=== PATIENT | female | born 1980 | race Hispanic/Latino ===

== ENCOUNTER 2023-11-03 01:45 | Inpatient (IN) | payer BC, MEDICAID ==
[~2023-11-03] VITALS: Ht 147.3 cm; Wt 77.7 kg
[2023-11-03 04:50] LABS: BASOPHILS # (AUTO) 0.03 K/uL (0.00-0.20); BASOPHILS % (AUTO) 0.7 % (0.0-5.0); EOSINOPHILS % (AUTO) 2.3 % (0.0-8.0); HEMATOCRIT 23.6 % (36-48); IMMATURE GRANULOCYTE ABSOLUTE 0.02 K/uL (0-1); LYMPHOCYTES # (AUTO) 1.5 K/uL (1.0-4.8); LYMPHOCYTES % (AUTO) 35.3 % (21.0-51.0); MEAN CORPUSCULAR HEMOGLOBIN 22.6 pg (27.0-33.0); MEAN CORPUSCULAR HGB CONC 29.7 g/dL (32.0-36.0); MEAN CORPUSCULAR VOLUME 76.1 fL (79-99); MONOCYTES # (AUTO) 0.2 K/uL (0.1-1.0); MONOCYTES % (AUTO) 5.6 % (3.0-13.0); NEUTROPHILS # (AUTO) 2.4 K/uL (1.8-7.7); NEUTROPHILS % (AUTO) 55.6 % (40.0-77.0); PLATELET COUNT (AUTO) 272 K/uL (130-400); RED CELL DISTRIBUTION WIDTH 16.1 % (11.0-15.5); WHITE BLOOD COUNT (AUTO) 4.3 K/uL (4.8-10.8)
[2023-11-03 04:57] LABS: CREATININE 0.7 mg/dL (0.5-1.5); POTASSIUM 3.4 mmol/L (3.5-5.1)
[2023-11-03 04:58] LABS: APPEARANCE,URINE CLOUDY (CLEAR); BILIRUBIN,URINE NEGATIVE (NEGATIVE); COLOR,URINE LIGHT-ORANGE (YELLOW); GLUCOSE, URINE (UA) NEGATIVE (NEGATIVE); KETONES,URINE NEGATIVE (NEGATIVE); LEUKOCYTE ESTERASE ,URINE NEGATIVE Leu/uL (NEGATIVE); NITRATE,URINE NEGATIVE (NEGATIVE); OCCULT BLOOD,URINE LARGE (NEGATIVE); PROTEIN,URINE 30 mg/dL (NEGATIVE); UROBILINOGEN,URINE 0.2 mg/dL (0.2-1.0)
[2023-11-03 05:02] LABS: ADD UA MICROSCOPIC YES
[2023-11-03] MEDS: ONDANSETRON 4MG INJ IVP ONE (05:02)
[2023-11-03 05:03] LABS: BACTERIA,URINE MOD /HPF (None Seen); MUCUS,URINE RARE LPF (None Seen); RBC,URINE TNTC /HPF (0-1); SQUAMOUS EPITHELIAL CELL,UR FEW /HPF (0-2)
[2023-11-03] MEDS: DiphenhydrAMINE HCL 50 MG/ML VIAL IV ONE (05:03)
[2023-11-03] MEDS: KETOROLAC 30MG VIAL (30MG/ML) IVP ONE (05:04)
[2023-11-03 05:05] LABS: AMPHET/METH SCREEN,URINE NEGATIVE (NEGATIVE); BARBITURATE SCREEN, URINE NEGATIVE (NEGATIVE); BENZODIAZEPINES SCREEN,URINE NEGATIVE (NEGATIVE); CANNABINOID SCREEN,URINE NEGATIVE (NEGATIVE); COCAINE SCREEN,URINE NEGATIVE (NEGATIVE); OPIATE SCREEN,URINE NEGATIVE (NEGATIVE); PHENCYCLIDINE SCREEN,URINE NEGATIVE (NEGATIVE)
[2023-11-03 05:10] LABS: ALBUMIN 3.3 g/dL (3.5-5.0); BILIRUBIN,TOTAL 0.3 mg/dL (0.2-1.0); THYROID STIMULATING HORMONE 3.55 uIU/mL (0.36-3.74); TOTAL PROTEIN, SERUM 6.4 g/dL (6.0-8.3)
[2023-11-03] MEDS ORDERED: ONDANSETRON 4MG INJ IV PRN (08:30)
[2023-11-03] MEDS ORDERED: ACETAMINOPHEN WITH CODEINE 1 TAB TAB PO PRN ×2 (08:30)
[2023-11-03] MEDS ORDERED: ACETAMINOPHEN 325 MG TAB PO PRN (08:30)
[2023-11-03] MEDS: FAMOTIDINE 20MG VIAL IV SCH (10:17)
[2023-11-03] MEDS: 0.9%NACL 1000ML 1,000 ML IV SCH (10:18)
[2023-11-03 15:17] LABS: HEMATOCRIT 27.1 % (36-48)
[2023-11-03 16:24] VITALS: O2SAT 98
[2023-11-03 17:05] VITALS: BP 120/67; PULSE 84; RESP 18
[2023-11-03] MEDS ORDERED: LEVO25CA4 PO (17:25)
[2023-11-03] MEDS ORDERED: ROPI0.2535 PO (17:25)
[2023-11-03 20:51] VITALS: BP 101/64; PULSE 82; RESP 18
[2023-11-03] MEDS: ACETAMINOPHEN 325 MG TAB PO PRN (21:24)
[2023-11-04 00:02] VITALS: BP 109/64; PULSE 79; RESP 18
[2023-11-04 05:12] VITALS: BP 106/63; PULSE 78; RESP 18
[2023-11-04 07:11] LABS: BASOPHILS # (AUTO) 0.04 K/uL (0.00-0.20); EOSINOPHILS # (AUTO) 0.12 K/uL (0.00-0.70); EOSINOPHILS % (AUTO) 2.9 % (0.0-8.0); HEMATOCRIT 24.9 % (36-48); IMMATURE GRANULOCYTE ABSOLUTE 0.02 K/uL (0-1); LYMPHOCYTES # (AUTO) 1.6 K/uL (1.0-4.8); LYMPHOCYTES % (AUTO) 39.5 % (21.0-51.0); MEAN CORPUSCULAR HEMOGLOBIN 23.2 pg (27.0-33.0); MEAN CORPUSCULAR HGB CONC 30.5 g/dL (32.0-36.0); MEAN CORPUSCULAR VOLUME 75.9 fL (79-99); MONOCYTES # (AUTO) 0.3 K/uL (0.1-1.0); MONOCYTES % (AUTO) 6.6 % (3.0-13.0); NEUTROPHILS % (AUTO) 49.5 % (40.0-77.0); NUCLEATED RED BLOOD CELLS 0.5 % (0.0-0.19); PLATELET COUNT (AUTO) 262 K/uL (130-400); RED BLOOD CELL COUNT(AUTO) 3.28 MIL/uL (4.00-5.50); RED CELL DISTRIBUTION WIDTH 16.4 % (11.0-15.5); WHITE BLOOD COUNT (AUTO) 4.1 K/uL (4.8-10.8)
[2023-11-04 07:27] LABS: ALBUMIN 2.9 g/dL (3.5-5.0); BILIRUBIN,TOTAL 0.3 mg/dL (0.2-1.0); CREATININE 0.7 mg/dL (0.5-1.5); POTASSIUM 3.8 mmol/L (3.5-5.1); TOTAL PROTEIN, SERUM 5.7 g/dL (6.0-8.3)
[2023-11-04] MEDS ORDERED: KCL 20 MEQ ERTAB PO PRN (07:30)
[2023-11-04] MEDS ORDERED: POTASSIUM CHLORIDE 20MEQ/100ML 100 ML IV PRN (07:30)
[2023-11-04] MEDS ORDERED: POTASSIUM CHLORIDE 10% ELIXIR 20 MEQ/15 ML UDCUP PO PRN (07:30)
[2023-11-04 08:00] VITALS: BP 107/65; PULSE 78; RESP 20
== END 2023-11-04 10:35 | disposition home or self-care (01) | DRG 760 ==
LOC: EDH 01:45 → EDHIP 08:17 → WSH 16:37
PROVIDERS: ADMIT Hospitalist; ATTEND Hospitalist
PROC: 30233N1 Transfusion of Nonautologous Red Blood Cells into Peripheral Vein, Percutaneous Approach (ICD-10-PCS; principal; 2023-11-03)
DX: N92.0 Excessive and frequent menstruation with regular cycle (principal); D62 Acute posthemorrhagic anemia; F41.9 Anxiety disorder, unspecified; E87.6 Hypokalemia; E03.9 Hypothyroidism, unspecified; G47.00 Insomnia, unspecified; K59.00 Constipation, unspecified; N93.8 Other specified abnormal uterine and vaginal bleeding
CPT/HCPCS: 36415; 76856; 80053; 80305; 81001; 83001; 84443; 84484; 84703; 85014; 85018; 85025; 86850; 86900; 86901; 86923; 87088; 93005; J1200; J1885; J2405; J3490; J7030; P9016